=== PATIENT | male | born 1965 | race Two or more races ===

== ENCOUNTER 2020-11-12 18:17 | Emergency (ER) | payer MEDICAID ==
[~2020-11-12] VITALS: Ht 175.3 cm; Wt 94.0 kg
[2020-11-12] MEDS ORDERED: ACETAMINOPHEN 325MG TABLET PO ONE (19:00)
[2020-11-12 19:31] VITALS: BP 149/103
== END 2020-11-12 19:32 | disposition home or self-care (01) ==
LOC: ER 18:17
DX: K62.89 Other specified diseases of anus and rectum (principal); Z86.59 Personal history of other mental and behavioral disorders
CPT/HCPCS: 99282

== ENCOUNTER 2021-01-20 00:50 | Emergency (ER) | payer MEDICAID ==
[~2021-01-20] VITALS: Ht 175.3 cm; Wt 95.0 kg
[2021-01-20 01:06] VITALS: BP 127/95
[2021-01-20] MEDS ORDERED: ACETAMINOPHEN WITH CODEINE 300/30MG TABLET PO STA (02:31)
[2021-01-20] MEDS ORDERED: MAGNESIUM/ALUMINUM HYDROXIDE/SIMETHICONE 30ML UDC PO STA (02:31)
[2021-01-20 04:31] LABS: BASOPHILS % 1.1 % (0.0-2.0); EOSINOPHILS % 1.9 % (0.0-5.0); HEMATOCRIT. 48.7 % (42.0-52.0); HEMOGLOBIN. 16.5 g/dL (14.0-18.0); LYMPHOCYTES % 33.7 % (20.0-50.0); MEAN CORPUSCULAR HEMOGLOBIN 32.6 pg (28.0-32.0); MEAN PLATELET VOLUME 9.6 fl (7.4-10.4); MONOCYTES % 11.3 % (2.0-8.0); PLATELET 179 x1000/uL (130-400); RED BLOOD CELL COUNT 5.08 mill/uL (4.7-6.1); RED CELL DISTRIBUTION WIDTH 12.9 % (11.6-14.6)
[2021-01-20 04:39] LABS: CHLORIDE 105 mEq/L (98-107)
[2021-01-20 04:42] LABS: ETHANOL BLOOD < 10 mg/dL
[2021-01-20] MEDS ORDERED: FAMO40TA70 MT (05:10)
[2021-01-20] MEDS ORDERED: ONDA4TAB5 MT (05:10)
== END 2021-01-20 05:28 | disposition home or self-care (01) ==
LOC: ER 01:00
DX: R10.13 Epigastric pain (principal); I10 Essential (primary) hypertension; F20.9 Schizophrenia, unspecified; M19.90 Unspecified osteoarthritis, unspecified site; F10.21 Alcohol dependence, in remission
CPT/HCPCS: 36415; 76705; 80053; 80320; 85025; 93005; 99285; G0480